=== PATIENT | female | born 1990 | race Caucasian/White ===

== ENCOUNTER 2020-04-05 12:40 | Emergency (ER) | payer OTHER, SELFPAY ==
[2020-04-05 12:50] VITALS: BP 133/73; PULSE 77; RESP 20; TEMP 36.6; O2SAT 100
--- NOTE | 2020-04-05 12:56 | ED.URI ---
HPI - URI/Sore Throat General Chief Complaint: Upper Respiratory Infection Stated Complaint: Sinus Source: patient and RN notes reviewed Mode of arrival: ambulatory Limitations: no limitations History of Present Illness HPI Narrative: 30 year old female who presents to express care with complaints of sinus congestion and green nasal drainage , facial pressure with headache and body aches for 6 days. Patient states that she got a COVID test done on the 4th in [place] and received her results yesterday which were negative. Patient states that her headache pain has increased to be like a migraine with her having photosensitivity, some nausea, with pain in face, frontal area and temporal region. MD elicited complaint: rhinorrhea, nasal congestion, sinus pain and other (headache, body aches) Pertinent past history: sinusitis Onset (ago): day(s) (6) Consistency: progressively worsening Severity: severe Pain scale (0-10): 7 Description of mucous: green Able to tolerate fluids by mouth: Yes Relieving factors: nothing Associated symptoms: myalgias, headache, rhinorrhea, nasal congestion and ear pain (itchy) Treatments prior to arrival: acetaminophen, cold medicine and other (excedrin) Related Data Home Medications Medication Instructions Recorded Confirmed levonorgestrel [Mirena] 1 device INTRAUTERINE ONCE 04/05/20 04/05/20 Allergies Allergy/AdvReac Type Severity Reaction Status Date / Time Sulfa (Sulfonamide Allergy Unknown RASH Verified 04/05/20 13:19 Antibiotics) Review of Systems Review of Systems: Narrative: CONSTITUTIONAL: Denies fever, chills, or sweats. EYES: Denies visual changes, redness, or discharge. ENT: Positive rhinorrhea, congestion, no sore throat, or otalgia. CARDIOVASCULAR: Denies chest pain, palpitations, or edema. RESPIRATORY: Denies cough or dyspnea. GASTROINTESTINAL: Denies abdominal pain,positive nausea, no vomiting, or diarrhea. GENITOURINARY: Denies dysuria or hematuria. SKIN: Denies rash or itching. MUSCULOSKELETAL: Denies back pain, joint pain,general body aches NEUROLOGIC: Positive headache frontal and to temporal areas. no numbness, or weakness. PSYCHIATRIC: Denies anxiety or depression. All systems reviewed & are unremarkable except as noted in HPI and below PMFSH Past Medical History Medical History (Updated 04/06/20 @ 00:00 by Background Daemon) History of sinus problem Migraines Surgical History Surgical History (Updated 04/05/20 @ 15:20 by Renata Bryan NP) Hx of MIGUEL Family History Family History (Updated 04/05/20 @ 15:21 by Renata Bryan NP) Mother Breast cancer Grandparent Hypertension Diabetes mellitus Breast cancer Sibling Asthma Social History Social History (Updated 04/05/20 @ 15:17 by Renata Bryan NP) Smoking status: Current every day smoker Tobacco type: cigarettes Alcohol intake: current Substance use: never Living arrangements: with family Gender identity (if verbalized by the patient): Female Comments At time of signature, agree with nursing past medical, surgical, social and family history. There is no relevant family history pertinent to the presenting complaint Exam Narrative: Exam Narrative: GENERAL: Well-appearing, well-nourished, and in no acute distress. HEAD: Normocephalic, atraumatic. EYES: PERRLA and EOMI.no nystagmus, photosensitivity ENT: Nares red, greenish tinged rhinorrhea no epistaxis. Mucous membranes moist.TM's normal with good light reflex, throat with some redness with no exudates or lesions, no tonsil enlargement, post nasal drainage. NECK: Supple. no lymphadenopathy CHEST: Clear to auscultation. No respiratory distress.SAO2 100% on room air HEART: Regular rate and rhythm. No murmur heard. Normal peripheral pulses. ABDOMEN: Soft, nontender, nondistended, normal active bowel sounds. EXTREMITIES: Normal range of motion. No edema. SKIN: Warm, dry, no rash. NEURO: No focal deficits. Alert and orient
== END 2020-04-05 13:33 | disposition home or self-care (01) ==
PROVIDERS: Emergency Provider Registered Nurse
DX: J32.9 Chronic sinusitis, unspecified (principal); R51.9 Headache, unspecified; F17.210 Nicotine dependence, cigarettes, uncomplicated
CPT/HCPCS: 99213; G0463

== ENCOUNTER 2020-12-10 10:52 | Emergency (ER) | payer OTHER, SELFPAY ==
[2020-12-10 11:04] VITALS: BP 105/68; PULSE 79; RESP 20; TEMP 36.9; O2SAT 100
--- NOTE | 2020-12-10 11:56 | ED.URI ---
HPI - URI/Sore Throat General Chief Complaint: Upper Respiratory Infection Stated Complaint: headache sore throat Time Seen by Provider: 12/10/20 11:55 Source: patient and RN notes reviewed Mode of arrival: ambulatory Limitations: no limitations History of Present Illness HPI Narrative: 30 year old female who presents to [facility] care with complaints of sore throat, headache and fatigue for the past 5 days. Patient states that she has had known exposure to Covid positive person at work. Patient states that she has had COVID vaccination. Patient states that she has taken Claritin D, Excedrin and Ibuprofen for her symptoms. Patient denies any shortness of breath or any difficulty swallowing. MD elicited complaint: sore throat and other (headache) Related Data Home Medications Medication Instructions Recorded Confirmed levonorgestrel [Mirena] 1 device INTRAUTERINE ONCE 04/05/20 12/10/20 Allergies Allergy/AdvReac Type Severity Reaction Status Date / Time Sulfa (Sulfonamide Allergy Unknown RASH Verified 12/10/20 11:21 Antibiotics) Review of Systems Review of Systems: CONSTITUTIONAL: Denies known fever,but report has felt feverish, chills, or sweats. EYES: Denies visual changes, redness, or discharge. ENT: Positive for rhinorrhea, congestion, sore throat, no otalgia. CARDIOVASCULAR: Denies chest pain, palpitations, or edema. RESPIRATORY: Denies cough or dyspnea. GASTROINTESTINAL: Denies abdominal pain, nausea, vomiting, or diarrhea. GENITOURINARY: Denies dysuria or hematuria. SKIN: Denies rash or itching. MUSCULOSKELETAL: Denies back pain, joint pain, or myalgia. NEUROLOGIC: Positive headache, no numbness, or weakness, tiredness PSYCHIATRIC: Denies anxiety or depression. All systems reviewed & are unremarkable except as noted in HPI and below PMFSH Past Medical History Medical History (Updated 12/11/20 @ 00:01 by Mauro Singh) History of sinus problem Migraines Surgical History Surgical History (Updated 04/05/20 @ 15:20 by Renata Bryan NP) Hx of LASIK Family History Family History (Updated 04/05/20 @ 15:21 by Renata Byran NP) Mother Breast cancer Grandparent Hypertension Diabetes mellitus Breast cancer Sibling Asthma Social History Social History (Updated 04/05/20 @ 15:17 by Renata Bryan NP) Smoking status: Current every day smoker Tobacco type: cigarettes Alcohol intake: current Substance use: never Gender identity (if verbalized by the patient): Female Comments At time of signature, agree with nursing past medical, surgical, social and family history. There is no relevant family history pertinent to the presenting complaint Exam Narrative: GENERAL: Well-appearing, well-nourished, and in no acute distress. HEAD: Normocephalic, atraumatic. EYES: PERRLA and EOMI. ENT: Nares clear rhinorrhea no epistaxis. Mucous membranes moist. TMs normal with good light reflex, throat with slight redness no lesions or exudates no tonsillar enlargement NECK: Supple. No lymphadenopathy CHEST: Clear to auscultation. No respiratory distress.SAO2 100% on room air HEART: Regular rate and rhythm. No murmur heard. Normal peripheral pulses. ABDOMEN: Soft, nontender, nondistended, normal active bowel sounds. EXTREMITIES: Normal range of motion. No edema. SKIN: Warm, dry, no rash. NEURO: No focal deficits. Alert and oriented x3. Course Vital Signs Vital signs: Vital Signs Temperature 36.9 C 12/10/20 11:04 Pulse Rate 79 12/10/20 11:04 Respiratory Rate 20 12/10/20 11:04 Blood Pressure 105/68 12/10/20 11:04 Pulse Oximetry 100 12/10/20 11:04 Temperature 36.9 C 12/10/20 11:04 Pulse Rate 79 12/10/20 11:04 Respiratory Rate 20 12/10/20 11:04 Blood Pressure 105/68 12/10/20 11:04 Pulse Oximetry 100 12/10/20 11:04 MDM - URI/Sore Throat Differential Diagnosis Differential diagnosis: Likely upper respiratory infection, sinusitis, pharyngitis and
== END 2020-12-10 12:25 | disposition home or self-care (01) ==
PROVIDERS: Emergency Provider Registered Nurse
DX: J06.9 Acute upper respiratory infection, unspecified (principal); F17.200 Nicotine dependence, unspecified, uncomplicated; Z20.822 Contact with and (suspected) exposure to COVID-19
CPT/HCPCS: 87081; 87426; 87880; 99213; C9803; G0463

== ENCOUNTER 2021-09-24 12:50 | Emergency (ER) | payer OTHER, SELFPAY ==
[2021-09-24 12:55] VITALS: BP 103/64; PULSE 66; RESP 14; TEMP 36.7; O2SAT 98
--- NOTE | 2021-09-24 12:56 | ED.URI ---
HPI - URI/Sore Throat General Chief Complaint: Upper Respiratory Infection Stated Complaint: Sore Throat/Fever/Congestion Time Seen by Provider: 09/24/21 12:57 Source: patient and RN notes reviewed History of Present Illness HPI Narrative: Patient is a 31-year-old female who presents the urgent care with complaints of sore throat, fever and congestion that started this morning. Patient states she had a fever of 101 Fahrenheit and has taken ibuprofen and use nasal spray. Patient states that her ears have also been itchy for the last couple days. Patient has had a positive COVID exposure at work and was just told today. Patient has not taken an at home COVID test. No other acute complaints. No acute distress noted. Patient read the plan of care. Some parts of this dictation were generated by voice recognition software and may contain typographical and/or grammatical inaccuracies. Related Data Home Medications Medication Instructions Recorded Confirmed levonorgestrel 20 mcg/24 hours (7 1 device intrauterine ONCE 04/05/20 12/10/20 yrs) 52 mg intrauterine device (Mirena) Allergies Allergy/AdvReac Type Severity Reaction Status Date / Time Sulfa (Sulfonamide Allergy Unknown RASH Verified 09/24/21 13:06 Antibiotics) Review of Systems Review of Systems: CONSTITUTIONAL: Reports of fever EYES: Denies visual changes, redness, or discharge. ENT: Reports of sore throat, congestion, itchy ears CARDIOVASCULAR: Denies chest pain, palpitations, or edema. RESPIRATORY: Denies cough or dyspnea. GASTROINTESTINAL: Denies abdominal pain, nausea, vomiting, or diarrhea. GENITOURINARY: Denies dysuria or hematuria. SKIN: Denies rash or itching. MUSCULOSKELETAL: Denies back pain, joint pain, or myalgia. NEUROLOGIC: Denies headache, numbness, or weakness. All other systems reviewed are negative, except as documented in HPI. [facility] Past Medical History Medical History (Updated 09/24/21 @ 13:24 by MARY ALICE Vidal) History of sinus problem Migraines Surgical History Surgical History (Updated 04/05/20 @ 15:20 by Renata Brayn NP) Hx of LASIK Family History Family History (Updated 04/05/20 @ 15:21 by Renata Bryan NP) Mother Breast cancer Grandparent Hypertension Diabetes mellitus Breast cancer Sibling Asthma Social History Social History (Updated 04/05/20 @ 15:17 by Renata Bryan NP) Smoking status: Current every day smoker Tobacco type: cigarettes Alcohol intake: current Substance use: never Gender identity (if verbalized by the patient): Female Comments At the time of my signature, I reviewed and agree with the nursing past medical, surgical, social, and family history. There is no relevant family history pertinent to the patient complaint. Exam Narrative: GENERAL: This is a well-nourished, well-developed patient, in no apparent distress. HEAD: normocephalic, atraumatic. EYES: PERRL. Sclera clear/white. Vision is grossly intact. EARS: External ears normal, auditory canals clear and without drainage, TMs normal without perforation. Hearing grossly intact. NOSE: External nose normal with no obvious nasal discharge, nares without redness, clear rhinorrhea. THROAT: Mucous membranes moist, mild erythema noted to posterior pharynx with moderate postnasal drainage NECK: Neck supple CARDIOVASCULAR: Regular rate and rhythm without murmurs, gallops, or rubs. RESPIRATORY: Clear to auscultation. Breath sounds equal bilaterally. No wheezes, rales, or rhonchi. SKIN: warm, intact with no suspicious lesions or rash, good texture and turgor. NEURO: awake, alert, and oriented to person, place and time. There were no obvious focal neurologic abnormalities. EXTREMITIES: No clubbing, cyanosis, or edema. Course Course Level of Care: Express Care Visit Vital Signs Vital signs: Vital Signs Temperature 98.1 F 09/24/21 12:55 Pulse Rate 66 09/24/21 12:55 Respiratory Rate 14
== END 2021-09-24 13:37 | disposition home or self-care (01) ==
PROVIDERS: Emergency Provider Nurse Practitioner Family
DX: J02.9 Acute pharyngitis, unspecified (principal); F17.210 Nicotine dependence, cigarettes, uncomplicated
CPT/HCPCS: 87081; 87880; 99213; G0463

== ENCOUNTER 2023-02-12 14:08 | Outpatient (CLI) | payer OTHER, SELFPAY ==
--- NOTE | ~2023-02-12 | MM_ITS ---
EXAMINATION: MM screening jong BI w karmen HISTORY: Screening mammogram, family history of breast cancer in her mother. TECHNIQUE: Craniocaudal and mediolateral oblique 3-D tomosynthesis images were obtained and synthetic 2-D images were generated. CAD analysis was submitted and interpreted. COMPARISON: None, baseline BREAST PARENCHYMAL COMPOSITION: There are scattered areas of fibroglandular density. FINDINGS: No suspicious mass, calcification, or architectural distortion are identified in either kong ast to suggest malignancy. IMPRESSION: 1. No mammographic evidence of malignancy. 2. Recommend routine screening mammography in one year given history of breast cancer in her mother i n her 30s. BI-RADS Category 1: Negative Reviewed, dictated and finalized at location A. [employer] IMPRESSION: 1. No mammographic evidence of malignancy. 2. Recommend routine screening mammography in one year given history of breast cancer in her mother in her 30s. BI-RADS Category 1: Negative
== END 2023-02-12 14:09 | disposition home or self-care (01) ==
LOC: ANHIMG 14:11
PROVIDERS: Visit Provider Obstetrics & Gynecology
DX: Z12.31 Encounter for screening mammogram for malignant neoplasm of breast (principal)
CPT/HCPCS: 77063; 77067

== ENCOUNTER 2023-05-01 10:49 | Emergency (ER) | payer OTHER, SELFPAY ==
[2023-05-01 11:04] VITALS: BP 104/66; PULSE 65; RESP 16; TEMP 37.6; O2SAT 100
--- NOTE | 2023-05-01 11:26 | ED.URI ---
HPI - URI/Sore Throat General Chief Complaint: Upper Respiratory Infection Stated Complaint: throat/congestion/cough Time Seen by Provider: 05/01/23 11:10 Source: patient, RN notes reviewed and old records reviewed Mode of arrival: ambulatory Limitations: no limitations History of Present Illness HPI Narrative: 33 year old female who presents to [facility] care with complaints of runny nose,cough and sore throat which started this morning with low grade temperature. Patient denies any chills or sweats or any body aches, denies any shortness of breath or any nausea or vomiting. Patient reports that she has taken Ibuprofen for her symptoms. Patient reports that son recently tested positive for strep throat. MD elicited complaint: sore throat Onset (ago): day(s) (today) Pain scale (0-10): 4 Able to tolerate fluids by mouth: Yes Treatments prior to arrival: ibuprofen Related Data Home Medications Medication Instructions Recorded Confirmed levonorgestrel 21 mcg/24 hours (8 1 device intrauterine ONCE 04/05/20 05/01/23 yrs) 52 mg intrauterine device (Mirena) Allergies Allergy/AdvReac Type Severity Reaction Status Date / Time Sulfa (Sulfonamide Allergy Unknown RASH Verified 09/24/21 13:06 Antibiotics) Review of Systems Review of Systems: CONSTITUTIONAL: Denies malaise, chills, sweats, kat grsde fever. EYES: Denies visual changes, redness, or discharge. ENT: Reports rhinorrhea, congestion, no sinus pain, no otalgia and positive for sore throat. CARDIOVASCULAR: Denies chest pain, palpitations, or edema. RESPIRATORY: Reports cough.? Denies dyspnea. GASTROINTESTINAL: Denies abdominal pain, nausea, vomiting, diarrhea SKIN: Denies rash or itching. MUSCULOSKELETAL: Denies myalgia. NEUROLOGIC: Denies headache. All systems reviewed & are unremarkable except as noted in HPI and below PMFSH Past Medical History Medical History History of sinus problem Migraines Surgical History Surgical History Hx of LASIK Family History Family History Mother Breast cancer Grandparent Hypertension Diabetes mellitus Breast cancer Sibling Asthma Social History Social History (Updated 05/03/23 @ 08:50 by Renata Bryan NP) Smoking status: Current every day smoker Tobacco type: e-cigarettes/vaping Alcohol intake: current Substance use: never Living arrangements: with family Gender identity (if verbalized by the patient): Female Comments At time of signature, agree with nursing past medical, surgical, social and family history. There is no relevant family history pertinent to the presenting complaint Exam Narrative: GENERAL: Well-appearing, well-nourished, and in no acute distress. HEAD: Normocephalic EYES: PERRLA, conjunctivae clear ENT: Nares clear, turbinates edematous and erythematous, clear discharge. Mucous membranes moist. TM pearly monroy with dull light reflex bilaterally; no tragal tenderness. Oropharynx erythematous without lesions. Tonsils enlarged and without exudate, no drooling, no hoarseness, no trismus, uvula midline. NECK: Supple. lymphadenopathy CHEST: Clear to auscultation, breath sounds equal. No wheezing, rhonchi, rales, or stridor. No respiratory distress, speaks in full sentences.cough,SAO2 100% on room air HEART: Regular rate and rhythm. No murmur heard. SKIN: Warm, dry, no rash. NEURO: Alert and oriented x3. PSYCH: Normal mood and affect Course Course Emergency Course: Patient is aware of diagnosis, understands and agrees to treatment plan.? Anticipatory guidance given.? Patient agrees to follow-up as directed and is aware of reasons to seek care at the emergency department. Portions of this record may have been created with voice recognition software Level of Care: Expr
== END 2023-05-01 11:30 | disposition home or self-care (01) ==
PROVIDERS: Emergency Provider Registered Nurse
DX: J02.0 Streptococcal pharyngitis (principal); F17.290 Nicotine dependence, other tobacco product, uncomplicated
CPT/HCPCS: 87880; 99213; G0463

== ENCOUNTER 2023-12-09 08:21 | Emergency (ER) | payer OTHER, SELFPAY ==
[2023-12-09 08:30] VITALS: BP 116/69; PULSE 61; RESP 16; TEMP 36.6; O2SAT 100
--- NOTE | 2023-12-09 08:51 | ED.URI ---
HPI - URI/Sore Throat General Chief Complaint: Upper Respiratory Infection Stated Complaint: congestion/headache Time Seen by Provider: 12/09/23 08:51 Source: patient and RN notes reviewed Mode of arrival: ambulatory Limitations: no limitations History of Present Illness HPI Narrative: 33-year-old female presented for complaint of headache, sore throat, body aches . Onset 2 days. Endorses exposure to covid. Denies sob, wheezing, n/v/d/f/c. MD elicited complaint: cough Related Data Home Medications Medication Instructions Recorded Confirmed levonorgestrel 21 mcg/24 hr (up to 1 device intrauterine ONCE 04/05/20 05/01/23 8 years) 52 mg intrauterine device (Mirena) Allergies Allergy/AdvReac Type Severity Reaction Status Date / Time Sulfa (Sulfonamide Allergy Unknown RASH Verified 09/24/21 13:06 Antibiotics) Review of Systems Review of Systems: CONSTITUTIONAL: Endorses malaise, chills, sweats, fever EYES: Denies visual changes, redness, or discharge ENT: Reports rhinorrhea, congestion, sinus pain, sore throat CARDIOVASCULAR: Denies chest pain, palpitations, edema RESPIRATORY: Reports cough, post nasal drainage. Denies dyspnea GASTROINTESTINAL: Denies abdominal pain, nausea, vomiting, diarrhea SKIN: Denies rash or itching MUSCULOSKELETAL: Endorses myalgia NEUROLOGIC: endorses headache PMFSH Past Medical History Medical History History of sinus problem Migraines Surgical History Surgical History Hx of LASIK Family History Family History Mother Breast cancer Grandparent Hypertension Diabetes mellitus Breast cancer Sibling Asthma Social History Social History Smoking status: Current every day smoker Tobacco type: e-cigarettes/vaping Alcohol intake: current Substance use: never Living arrangements: with family Gender identity (if verbalized by the patient): Female Exam Narrative: GENERAL: mildly Ill-appearing, nontoxic no acute distress. EYES: PERRLA, conjunctivae clear ENT: Mucous membranes moist. TMs pearly monroy with dull light reflex bilaterally; no tragal tenderness. Oropharynx not erythematous without lesions or exudate, no drooling, no hoarseness, no trismus, uvula midline. No tripod positioning, muffled voice, soft palate or pharyngeal wall bulging NECK: Supple. No lymphadenopathy CHEST: Clear to auscultation, breath sounds equal. No wheezing, rhonchi, rales, or stridor. No respiratory distress, speaks in full sentences. HEART: Regular rate and rhythm. No murmur heard. SKIN: Warm, dry, no rash. NEURO: Alert and oriented x3. PSYCH: Normal mood and affect Course Course Emergency Course: Patient is aware of diagnosis, understands and agrees to treatment plan. Anticipatory guidance given. Patient agrees to follow-up as directed and is aware of reasons to seek care at the emergency department. Portions of this record may have been created with voice recognition software Level of Care: Express Care Visit Vital Signs Vital signs: Vital Signs Temperature 97.9 F 12/09/23 08:30 Pulse Rate 61 12/09/23 08:30 Respiratory Rate 16 12/09/23 08:30 Blood Pressure 116/69 12/09/23 08:30 Pulse Oximetry 100 12/09/23 08:30 Oxygen Delivery Room Air 12/09/23 08:30 Temperature 97.9 F 12/09/23 08:30 Pulse Rate 61 12/09/23 08:30 Respiratory Rate 16 12/09/23 08:30 Blood Pressure 116/69 12/09/23 08:30 Pulse Oximetry 100 12/09/23 08:30 Oxygen Delivery Room Air 12/09/23 08:30 reviewed MDM - URI/Sore Throat MDM Narrative Medical decision making narrative: Discussed physical exam findings. Advised supportive measures and signs/symptoms to go to the ER. Pt is appropriate for outpt treatment and f/u. Diffe
[2023-12-09 09:04] LABS: EDINFLUASCREEN Negative (Negative); EDINFLUBSCREEN Negative (Negative)
== END 2023-12-09 09:02 | disposition home or self-care (01) ==
PROVIDERS: Emergency Provider Nurse Practitioner Family
DX: B34.9 Viral infection, unspecified (principal); Z20.822 Contact with and (suspected) exposure to COVID-19
CPT/HCPCS: 87635; 87804; 99213; G0463

== ENCOUNTER 2024-02-22 10:29 | Emergency (ER) | payer OTHER, SELFPAY ==
[2024-02-22 10:35] VITALS: BP 107/68; PULSE 76; RESP 18; TEMP 36.5; O2SAT 100
--- NOTE | 2024-02-22 10:43 | ED.FEVER ---
HPI - Fever General Chief Complaint: Nausea/Vomiting/Diarrhea Stated Complaint: Fever Time Seen by Provider: 02/22/24 10:43 Source: patient, RN notes reviewed and old records reviewed Mode of arrival: ambulatory Limitations: no limitations History of Present Illness HPI Narrative: 33-year-old female to Express Care with complaint of urinary frequency, fever, nausea, bilateral lower back discomfort for 2 days. Patient reports diarrhea that started today. Patient has been attempting to treat with ibuprofen, Tylenol cold and flu meds every 4-6 hours. Patient states last dose was at 7:30 a.m. this morning. patient states last menstrual cycle was 2 weeks ago. Patient denies abdominal pain, vomiting, appetite changes, hematuria. Patient able to tolerate fluids by mouth. Patient resting in bed comfortably in exam room in no acute distress. Respirations even and nonlabored. Related Data Home Medications Medication Instructions Recorded Confirmed levonorgestrel 21 mcg/24 hr (up to 1 device intrauterine ONCE 04/05/20 05/01/23 8 years) 52 mg intrauterine device (Mirena) Allergies Allergy/AdvReac Type Severity Reaction Status Date / Time Sulfa (Sulfonamide Allergy Unknown RASH Verified 09/24/21 13:06 Antibiotics) Review of Systems Review of Systems: All systems reviewed & are unremarkable except as noted in HPI and below Constitutional: Constitutional: Reports as per HPI and Reports fever(s) Eyes: Eyes: Reports no additional eye complaints ENT: Reports system reviewed and no additional complaints, except as documented Cardiovascular: Cardiovascular: Reports no additional cardiovascular complaints, Denies chest pain and Denies dyspnea Respiratory: Respiratory: Reports no additional respiratory complaints, Denies cough and Denies dyspnea Gastrointestinal: Gastrointestinal: Reports as per HPI, Reports diarrhea and Reports nausea Genitourinary: Genitourinary: Reports as per HPI and Reports nocturia Musculoskeletal: Musculoskeletal: Reports as per HPI and Reports back pain ( Bilateral lower) Neurologic: Reports system reviewed and no additional complaints, except as documented Psychiatric: Psychiatric: Reports no additional psychiatric complaints PMFSH Past Medical History Medical History History of sinus problem Migraines Surgical History Surgical History Hx of LASIK Family History Family History Mother Breast cancer Grandparent Hypertension Diabetes mellitus Breast cancer Sibling Asthma Social History Social History Smoking status: Current every day smoker Tobacco type: e-cigarettes/vaping Alcohol intake: current Substance use: never Living arrangements: with family Gender identity (if verbalized by the patient): Female Comments At the time of my signature, I reviewed and agree with the nursing past medical, surgical, social, and family history. There is no relevant family history pertinent to the patient complaint. Exam Const: General: cooperative, comfortable, no acute distress, alert, tired appearing and well nourished Nutritional Appearance: well nourished Orientation/consciousness: patient oriented x3 Limitations: no limitations HENMT: Head: normal to inspection Ears: external ears normal Face/Nose/Sinus: Normal external nose present, Normal nares present, normal facial exam, No erythema and No edema Face and sinus: normal facial exam, no erythema and no edema Mouth: Yes Normal oral and palatal mucosa present Eyes: General: appearance normal, both eyes and all related structures Neck: Neck: normal visual inspection, full ROM and no meningeal signs Lymphatic: no lymphadenopathy noted and no lymphedema noted Chest: Chest palpation & inspection: normal inspection of the chest Resp: Effort & Inspection: normal respiratory effort and able to speak in complete sentences Auscultation: clear to auscultation bilaterally Cardio: Jugular venous distension: no JVD Rate: regular rate Rhythm: regular rhythm GI: Inspection: normal to inspection Back/Spine/Pelvis: Back: no CVA tenderness and back tenderness ( bilateral lower) Cervical Spine: cervical ROM normal Skin: General skin exam: normal color, no rashes or lesions noted and turgor normal Neuro: General: patient oriented x3, gait normal, moves all extremities and no meningeal signs Speech: normal speech Gait exam (Neuro): Normal gait present Extrem: General: normal to inspection, full ROM and capillary refill normal Psych: Appearance: grossly normal and well kempt Course Course Emergency Course: Some parts of this dictation were generated by voice recognition software and may contain typographical and/or grammatical inaccuracies. Level of Care: Express Care Visit Vital Signs Vital signs: Vital Signs Temperature 36.5 C 02/22/24 10:35 Pulse Rate 76 02/22/24 10:35 Respiratory Rate 18 02/22/24 10:35 Blood Pressure 107/68 02/22/24 10:35 Pulse Oximetry 100 02/22/24 10:35 Temperature 36.5 C 02/22/24 10:35 Pulse Rate 76 02/22/24 10:35 Respiratory Rate 18 02/22/24 10:35 Blood Pressure 107/68 02/22/24 10:35 Pulse Oximetry 100 02/22/24 10:35 reviewed MDM - Fever MDM Narrative Medical decision making narrative: 33-year-old female to Express Care with complaint of urinary frequency, fever, nausea, bilateral lower back discomfort for 2 days. Patient reports diarrhea that started today. Patient has been attempting to treat with ibuprofen, Tylenol cold and flu meds every 4-6 hours. Patient states last dose was at 7:30 a.m. this morning. Patient states last menstrual cycle was 2 weeks ago. Patient denies abdominal pain, vomiting, appetite changes, hematuria. Patient able to tolerate fluids by mouth. Patient resting in bed comfortably in exam room in no acute distress. Respirations even and nonlabored. patient exam grossly unremarkable. UA negative clinic. Culture sent. Patient is sitting comfortably in exam room nontoxic in appearance. Patient appropriate for outpatient treatment and follow-up. Discharge instructions reviewed with patient, as well as provided in writing per nursing staff. The instructions also include specific and strict return/GO TO THE ER as well as f/u information. All questions have been answered, and the patient deny any further questions with discharge and discharge plan. Some parts of this dictation were generated by voice recognition software and may contain typographical and/or grammatical inaccuracies. Differential Diagnosis Differential diagnosis: Likely cellulitis, fever of unknown origin, gastroenteritis, community acquired pneumonia, pyelonephritis, viral infection, sepsis and influenza Lab Data Labs: Lab Results 02/22/24 02/22/24 Range/Units 11:37 11:48 POC Urine Color Yellow POC Urine Clarity Cloudy POC Urine pH 6.0 POC Ur Specif [place] 1.030 POC Urine Protein 1+ (Negative) POC Ur Glucose (UA) Negative (Negative) POC Urine Ketones Negative (Negative) POC Urine Blood 2+ (Negative) POC Urine Nitrite Negative (Negative) POC Urine Bilirubin Negative (Negative) POC Urine Urobilinogen 0.2 POC U Leukocyte Esteras Negative (Negative) POC Urine HCG, Qual Negative (Negative) Discharge Plan Discharge Clinical Impression: Gastroenteritis Patient Disposition: Home, Self-Care Condition: Stable Instructions: Gastroenteritis (DC) Additional Instructions: please review attached gastroenteritis instructions regarding gastroenteritis and implement suggestions as tolerated please utilize Zofran as needed over the next 2-3 days ensure that you are staying well hydrated, 8-10 full glasses of water daily Tylenol and ibuprofen as needed for pain or fever We will send a urine culture off to the lab; if the culture identifies an organism that the prescribed antibiotic will not treat, you will receive a phone call from an urgent care staff member and an appropriate antibiotic will be prescribed. -Follow-up with your primary care provider for urine recheck OR if your symptoms persist, change or worsen significantly before you can contact your personal physician then please, without delay, go to the emergency department for further evaluation. Prescriptions: New ondansetron 4 mg tablet,disintegrating 4 mg PO Q8H PRN (Reason: nausea and vomiting) Qty: 7 0RF No Action Mirena 20 mcg/24 hours (6 yrs) 52 mg Intrauterine Device 1 device INTRAUTERINE ONCE Follow-up/Referrals: UNKNOWN,DOCTOR [Primary Care Provider] - Stand Alone Forms: Work/School Release IP
[2024-02-22 11:40] LABS: EDUAAPPEAR Cloudy; EDUABILI Negative (Negative); EDUABLOOD 2+ (Negative); EDUACOLOR1 Yellow; EDUAGLUCOSE Negative (Negative); EDUAKETONE Negative (Negative); EDUALEUKO Negative (Negative); EDUANITRATE Negative (Negative); EDUAPROTEIN 1+ (Negative); EDUAUROBILI 0.2
[2024-02-22 11:58] LABS: BEDSIDEPREGUCG Negative (Negative)
== END 2024-02-22 12:03 | disposition home or self-care (01) ==
PROVIDERS: Emergency Provider Nurse Practitioner Family
DX: K52.9 Noninfective gastroenteritis and colitis, unspecified (principal); F17.290 Nicotine dependence, other tobacco product, uncomplicated
CPT/HCPCS: 81003; 81025; 87086; 99213; G0463

== ENCOUNTER 2024-03-24 15:09 | Outpatient (CLI) | payer OTHER, SELFPAY ==
--- NOTE | ~2024-03-24 | MM_ITS ---
EXAMINATION: MM screening [facility] BI w karmen HISTORY: Screening TECHNIQUE: Craniocaudal and mediolateral oblique 3-D tomosynthesis images were obtained and synthetic 2-D images were generated. CAD analysis was submitted and interpreted. COMPARISON: 02/12/2023 BREAST PARENCHYMAL COMPOSITION: The breasts are heterogeneously dense, which may obscure small masses . FINDINGS: Punctate calcification within the retroareolar position of the left breast, stable and ness gn in appearance. Stable parenchymal pattern without suspicious microcalcifications, architectural distortion, discrete masses or significant asymmetry. IMPRESSION: 1. No mammographic evidence of malignancy. 2. Recommend routine screening mammography in one year. BI-RADS Category 2: Benign finding(s). Reviewed, dictated and finalized at location A. [employer]
== END 2024-03-24 15:10 | disposition home or self-care (01) ==
PROVIDERS: Visit Provider Obstetrics & Gynecology
DX: Z12.31 Encounter for screening mammogram for malignant neoplasm of breast (principal)
CPT/HCPCS: 77063; 77067

== ENCOUNTER 2024-10-16 17:44 | Emergency (ER) | payer SELFPAY ==
[2024-10-16 17:50] VITALS: BP 126/74; PULSE 77; RESP 20; TEMP 36.7; O2SAT 100
--- NOTE | 2024-10-16 17:54 | ED_ITS ---
HPI - Skin/Abscess/Foreign Bdy General Chief complaint: Skin/Abscess/Foreign Body Stated complaint: bump on chest Time Seen by Provider: 10/16/24 17:54 Source: patient, RN notes reviewed and old records reviewed Mode of arrival: ambulatory Limitations: no limitations History of Present Illness HPI narrative: 34-year-old female presents to the [facility] with a bump to the right chest just above the breast, sternal area. States that started on Wednesday. Has been washing the area, squeezing it. States that symptoms kept getting worse, larger, more red. Applied Pred last night, now it is draining with surrounding erythema, increased warmth. Patient denies any fevers. No history of abscesses in the past. Onset (ago): day(s) (3) Treatments prior to arrival: attempted to drain pus at home and other Related Data Home Medications ?Medication ?Instructions ?Recorded ?Confirmed ?Last Taken ?Type levonorgestrel (Mirena) 1 device intrauterine ONCE 04/05/20 05/01/23 Unknown History Allergies Allergy/AdvReac Type Severity Reaction Status Date / Time Sulfa (Sulfonamide Allergy Unknown RASH Verified 10/16/24 17:56 Antibiotics) Review of Systems 2 Review of Systems: All systems reviewed & are unremarkable except as noted in HPI and below Constitutional: Constitutional: Reports no additional constitutional complaints Musculoskeletal: Musculoskeletal: Reports no additional musculoskeletal complaints Integumentary/Breasts: Skin/Breast: Reports as per HPI [facility] Past Medical History Medical History History of sinus problem Migraines Surgical History Surgical History Hx of LASIK Family History Family History Mother Breast cancer Grandparent Hypertension Diabetes mellitus Breast cancer Sibling Asthma Social History Social History Smoking status: Current every day smoker Tobacco type: e-cigarettes/vaping Alcohol intake: current Substance use: never Living arrangements: with family Gender identity (if verbalized by the patient): Female Comments At the time of my signature, I reviewed and agree with the nursing past medical, surgical, social, and family history. There is no relevant family history pertinent to the patient complaint. Exam 2 Const: General: cooperative, healthy appearing, comfortable, no acute distress, well developed, alert and well nourished Nutritional Appearance: w ell nourished Orientation/consciousness: patient oriented x3 Limitations: no limitations HENMT: Head: normal to inspection Eyes: General: appearance normal, both eyes and all related structures A lignment and Position: alignment normal Neck: Neck: normal visual inspection, full ROM, no lymphadenopathy and no meningeal signs Chest: Chest palpation & inspection: normal inspection of the chest Chest/axillae images: 1. Fluctuant area for half by 2.5 cm, res. Multiple areas of drainage. Erythema 6 x 7 cm. No streaking. Resp: Effort & Inspection: normal respiratory effort and able to speak in complete sentences Cardio: Rate: regular rate Skin: General skin exam: normal color and no rashes or lesions noted W ounds: wounds noted Neuro: General: patient oriented x3, gait normal, moves all extremities and no meningeal signs Cognition (Neuro): normal cognition Speech: normal speech Gait exam (Neuro): Normal gait present Extrem: General: normal to inspection, full ROM, capillary refill normal and normal gait Psych: Appearance: grossly normal and well kempt Mental Status: mental status grossly normal Speech and movement: Normal speech and movement present and Clear speech present Affect: normal affect Attitude: cooperative Course Course Level of Care: Express Care Visit Vital Signs Vital signs: Vital Signs Temperature 98.1 F 10/16/24 17:50 Pulse Rate 77 10/16/24 17:50 Respiratory Rate 20 10/16/24 17:50 Blood Pressure 126/74 10/16/24 17:50 Pulse Oximetry 100 10/16/24 17:50 Oxygen Delivery Room Air 10/16/24 17:50 Temperature 98.1 F 10/16/24 17:50 Pulse Rate 77 10/16/24 17:50 Respiratory Rate 20 10/16/24 17:50 Blood Pressure 126/74 10/16/24 17:50 Pulse Oximetry 100 10/16/24 17:50 Oxygen Delivery Room Air 10/16/24 17:50 Reviewed MDM - Skin/Abscess/Foreign Bdy MDM Narrative Medical decision making narrative: Patient presents with an abscess, already draining. Discussed opening area but due to location of just above breast. Patient is not wanting it opened with a scalpel. Area cleaned with Betadine, able to drain a large portion of the purulent drainage. Purulent drainage is yellow to green in color. Culture collected and sent to lab. Area again cleaned with Betadine, patient tolerated well. Discussed in great detail the importance of following up, signs and symptoms proceed to the emergency room Antibiotic, clindamycin prescribed Discharge instructions reviewed with patient, as well as provided in writing per nursing staff. The instructions also include specific and strict return/GO TO THE ER as well as f/u information. All questions have been answered, and the patient deny any further questions with discharge and discharge plan. Some parts of this dictation were generated by voice recognition software and may contain typographical and/or grammatical inaccuracies. Differential Diagnosis Differential diagnosis: Likely abscess of skin or subcutaneous tissue, cellulitis and contact dermatitis Critical Care Time Critical Care Time Critical Care Time: No Discharge Plan Discharge Clinical Impression: Abscess of skin or subcutaneous tissue, Cellulitis Patient Disposition: Home Condition: Stable Instructions: Antibiotic Form, Cellulitis (ED), Abscess Incision and Drainage (DC) Additional Instructions: DO NOT pick at the area. This will only make the area worse and drive infection deeper. Shower and wash with soapy water. Keep area clean and dry. Take all the antibiotics as prescribed. While on antibiotics is important you take a probiotic a day or eat a yogurt a day. Make sure to keep a dressing in place especially while it is draining Follow up with PCP in 7-10 days If you are having a hard time finding a physician please call our [facility] group liaison at [phone]. go to the ER for worsened condition or Symptoms Patient Language: Nauruan Prescriptions: New clindamycin HCl [Cleocin HCl] 150 mg capsule 150 mg PO TID 7 Days Qty: 21 0RF clindamycin HCl [Cleocin HCl] 300 mg capsule 300 mg PO TID 7 Days Qty: 21 0RF Rx Instructions: Take with 150 mg, total of 450 mg No Action Mirena 20 mcg/24 hours (6 yrs) 52 mg Intrauterine Device 1 device INTRAUTERINE ONCE Follow-up/Referrals: Sophia Avelar MD [Physician] - 1 Week (express care follow up chest abscess) PHYSICIAN,ENVIRONMENTAL SERVICES ASSOCIATE [Primary Care Provider] - Stand Alone Forms: Work/School Release IP Time of Disposition: 18:13
== END 2024-10-16 18:22 | disposition home or self-care (01) ==
PROVIDERS: Emergency Provider Nurse Practitioner
DX: L02.213 Cutaneous abscess of chest wall (principal); L03.313 Cellulitis of chest wall; F17.290 Nicotine dependence, other tobacco product, uncomplicated
CPT/HCPCS: 87070; 87075; 99213; G0463